=== PATIENT | female | born 1990 | race African-American/Black ===

== ENCOUNTER 2018-12-10 09:12 | Emergency (ER) | payer SELFPAY ==
[~2018-12-10] VITALS: Ht 170.2 cm; Wt 63.0 kg
[2018-12-10 10:01] LABS: CLARITY URINE CLEAR (CLEAR); COLOR URINE DARK YELLOW (YELLOW); KETONES URINE 3+ (NEGATIVE); LEUKOCYTE ESTERASE URINE NEGATIVE (NEGATIVE); NITRITE URINE NEGATIVE (NEGATIVE); OCCULT BLOOD URINE 3+ (NEGATIVE); PROTEIN URINE NEGATIVE (NEGATIVE); SPECIFIC GRAVITY URINE 1.023 (1.005-1.030)
[2018-12-10 12:10] LABS: BASOPHILS % 0.8 % (0.0-2.0); EOSINOPHILS % 0.3 % (0.0-5.0); HEMATOCRIT. 43.1 % (36.0-48.0); HEMOGLOBIN. 14.1 g/dL (12.0-16.0); LYMPHOCYTES % 28.8 % (20.0-50.0); MEAN CORPUSCULAR HEMOGLOBIN 27.8 pg (28.0-32.0); MEAN CORPUSCULAR VOLUME 84.6 fL (81.0-99.0); MEAN PLATELET VOLUME 8.1 fl (7.4-10.4); NEUTROPHILS % 64.1 % (40.0-76.0); PLATELET 292 x1000/uL (130-400); RED BLOOD CELL COUNT 5.09 mill/uL (4.2-5.4); RED CELL DISTRIBUTION WIDTH 12.9 % (11.6-14.6)
[2018-12-10 12:18] LABS: CHLORIDE 106 mEq/L (98-107)
[2018-12-10 12:28] LABS: B-HCG QUANTITATIVE 423 mIU/mL (<3)
[2018-12-10 13:10] VITALS: BP 125/70
== END 2018-12-10 13:10 | disposition home or self-care (01) ==
LOC: ER 09:12
DX: O20.0 Threatened abortion (principal); Z3A.01 Less than 8 weeks gestation of pregnancy
CPT/HCPCS: 36415; 76801; 81025; 84702; 99284